=== PATIENT | male | born 1975 | race Caucasian/White ===

== ENCOUNTER 2024-11-08 08:51 | Emergency (ER) | payer BC, SELFPAY ==
[2024-11-08 09:19] VITALS: BP 143/97; PULSE 82; RESP 18; TEMP 36.8; O2SAT 95; BMI 38.2
--- NOTE | 2024-11-08 09:38 | PD.EDRME ---
Rapid Medical Screening Exam RME Arrival date/time: 11/08/24 08:51 Chief Complaint: Nausea/Vomiting/Diarrhea Vital signs: Vital Signs Temperature 98.3 F 11/08/24 09:19 Pulse Rate 82 11/08/24 09:19 Respiratory Rate 18 11/08/24 09:19 Blood Pressure 143/97 H 11/08/24 09:19 Pulse Oximetry (%) 95 11/08/24 09:19 Oxygen Delivery Method Room Air 11/08/24 09:19 Pulse ox room air 95% Vital signs reviewed by provider: Yes COUNTS INCLUDE 234 BEDS AT THE [facility] Narrative: Patient tells me he has had diarrhea that began 3 weeks ago. Tells me that his symptoms were started in the upper abdomen and within the last 2-week has now descended to the lower portion of his abdomen. Patient tried [id number] Imodium and Pepto-Bismol which seemed to help. Patient also complains of mucus described as thick in his stool. Does not see blood.
[2024-11-08 09:56] LABS: Basophils # (Auto) 0.0 Thou/mm3 (0.0-0.2); Basophils % (Auto) 0 % (0-2.5); Eosinophils # (Auto) 0.3 Thou/mm3 (0.0-0.5); Eosinophils % (Auto) 4 % (0-10); Hematocrit 46.8 % (41.0-53.0); Hemoglobin 15.5 g/dL (13.5-16.0); Immature Granulocytes Auto 0.03 Thou/mm3 (0.00-0.00); Lymphocytes # (Auto) 1.7 Thou/mm3 (1.0-4.8); Lymphocytes % (Auto) 24 % (10-50); Mean Corpuscular HGB Conc 33.1 g/dl (31.0-37.0); Mean Corpuscular Hemoglobin 28.5 pg (25.0-35.0); Mean Corpuscular Volume 86 fL (80-100); Monocytes # (Auto) 0.8 Thou/mm3 (0.0-0.8); Monocytes % (Auto) 11 % (0-12); Neutrophils # (Auto) 4.1 Thou/mm3 (1.8-7.7); Neutrophils % (Auto) 60 % (37-80); Nucleated Red Blood Cell # 0.00 Thou/mm3 (0.00-0.00); Nucleated Red Blood Cell % 0 /100 WBC (0); Platelet Count 257 Thou/mm3 (140-440); RDW Standard Deviation 42.5 fL (35.1-43.9); Red Blood Count 5.43 Miln/mm3 (4.50-5.90); White Blood Count 6.8 Thou/mm3 (3.8-10.6)
[2024-11-08 10:14] LABS: Alanine Aminotransferase 28 U/L (10-49); Albumin, Serum 4.5 gm/dL (3.5-5.0); Albumin/Globulin Ratio 2.0 (1.2-2.2); Alkaline Phosphatase 84 U/L (46-116); Anion Gap 9 (7-16); Aspartate Amino Transferase 20 U/L (0-34); BUN/Creatinine Ratio 16 Ratio (12-20); Bilirubin,Total 0.5 mg/dL (0.3-1.2); Blood Urea Nitrogen 16 mg/dL (9-23); Calcium 9.4 mg/dL (8.3-10.6); Calcium (Corrected) 9.4 mg/dL (8.5-10.1); Carbon Dioxide 26.1 mMol/L (20.0-31.0); Chloride 108 mMol/L (98-107); Creatinine (Component) 1.0 mg/dL (0.6-1.3); Estimated Creatinine Clearance 108.5 mL/min (>60); Globulin 2.2 gm/dL (2.3-3.5); Glucose 116 mg/dL (74-106); Lipase 40 U/L (12-53); Osmolality,Calculated 287 (275-295); Potassium 4.4 mMol/L (3.4-5.1); Sodium 143 mMol/L (136-145); Total Protein 6.7 gm/dL (5.7-8.2); eGFR > 60 See Note
[2024-11-08 11:12] VITALS: BP 149/100; PULSE 81; RESP 18; TEMP 36.8; O2SAT 96
--- NOTE | 2024-11-08 11:33 | XR_ITS ---
Examination: CT abdomen with intravenous contrast CT pelvis with intravenous contrast 2-D coronal reconstructions 2-D sagittal reconstructions Date and time of exam:November 08, 2024 1420 hours INDICATIONS: Diarrhea beginning 2 weeks ago. CTDI: vol (mGy) 14.6 DLP: (mGycm) 1008 Technique: Multiple axial sections of the abdomen and pelvis have been obtained. 64 slice high-resolution scanner used. 3 mm axial sections have been obtained, post intravenous injection 60 cc [id number] 2-D sagittal, coronal reconstructions obtained. Low dose protocols were performed. One or more of the following dose reduction techniques were used; automated exposure control, adjustment of the mA and/or KV according to patient size, use of iterative reconstruction technique. Findings: No focal liver or splenic lesions No gallstones No pancreatic or adrenal mass. No renal or ureteral calculi, no hydronephrosis Aorta normal size Tiny fat-containing umbilical hernia. No pericecal inflammatory change No bowel obstruction No diverticulitis Negative for significant prostatomegaly Bladder intact Moderate osteopenia IMPRESSION: No renal or ureteral calculi, no hydronephrosis No CT findings of appendicitis, obstruction, diverticulitis or nonspecific colitis pattern
--- NOTE | 2024-11-08 11:34 | PD.EDNV ---
Nausea/Vomit./Diarrhea-RME/HPI General Chief complaint: Nausea/Vomiting/Diarrhea Stated complaint: Diarrhea X 3 weeks Time Seen by Provider: 11/08/24 11:26 Source: patient Arrival date/time: 11/08/24 08:51 Limitations: no limitations RME / HPI RME / HPI Narrative: 49-year-old male with a history of antibiotic use is here today with 3-week history of loose stools. Denies any blood with this. He has diffuse abdominal pain. Denies any nausea, vomiting, or fevers. Has no urinary complaints. He has a history of multiple sclerosis and no other chronic disease. He states he contact his primary care provider for follow-up as they were not available so he came here. He has no other acute complaints or concerns. Related Data Home Medications ?Medication ?Instructions ?Recorded ?Confirmed alprazolam 0.5 mg tablet (Xanax) 0.5 mg PO HS #0 tabs 06/03/16 02/22/23 duloxetine 30 mg capsule,delayed 30 mg PO 1XD 02/22/23 02/23/23 release gabapentin 100 mg capsule 100 mg PO TID 02/22/23 02/23/23 metoprolol tartrate 25 mg tablet 25 mg PO BID 02/22/23 02/23/23 tizanidine 4 mg tablet 4 mg PO TID 02/22/23 02/23/23 pantoprazole 40 mg tablet,delayed 40 mg PO QDAY 02/23/23 02/23/23 release prednisone 20 mg tablet 20 mg PO 1XD 02/23/23 02/23/23 Allergies Allergy/AdvReac Type Severity Reaction Status Date / Time dimethyl fumarate (From Allergy Severe Anaphylaxis Verified 11/08/24 08:55 Tecfidera) glatiramer (copolymer 1) Allergy Mild SOB,RASH,HR Verified 11/08/24 08:55 RAPID Review of Systems Review of Systems Systems Reviewed: All systems reviewed, normal except as documented ED Exam General Limitations: Present no limitations General appearance: Present alert and in no apparent distress Head Head exam: Present atraumatic Eye Eye exam: Present normal appearance, PERRL and EOMI ENT ENT exam: Present normal exam, normal oropharynx and mucous membranes moist Neck Neck exam: Present normal inspection, full ROM and trachea midline Chest Chest inspection: Present normal inspection and symmetric chest wall rise Respiratory Respiratory exam: Present normal lung sounds bilaterally Cardiovascular Cardiovascular exam: Present regular rate, normal rhythm and normal heart sounds Abdominal Exam Abdominal exam: Present soft; Absent distention, tenderness or guarding Extremities Exam Extremities exam: Present normal inspection and full ROM Back Exam Back exam: Present normal inspection and full ROM Neurological Exam Neurological exam: Present alert, oriented X3 and CN II-XII intact Psychiatric Psychiatric exam: Present normal affect and normal mood Skin Skin exam: Present warm, dry, intact and normal color Course Quality Measures none Orders Category Date Time Status CT Screening NOW Care 11/08/24 11:[address] abdomen pelvis w con Stat Exams 11/08/24 11:33 Completed CBC Stat Lab 11/08/24 09:49 Completed Clostridium Difficile PCR Stat Lab 11/08/24 Ordered Comprehensive Metabolic Panel Stat Lab 11/08/24 09:49 Completed Lipase Stat Lab 11/08/24 09:49 Completed Ova & Parasites, Conc, Smear* Stat Lab 11/08/24 11:33 Ordered Stool Culture Stat Lab 11/08/24 11:33 Ordered Urinalysis Stat Lab 11/08/24 09:41 Completed Vital Signs Vital signs: Vital Signs Temperature 98.3 F 11/08/24 09:19 Pulse Rate 82 11/08/24 09:19 Respiratory Rate 18 11/08/24 09:19 Blood Pressure 143/97 H 11/08/24 09:19 Pulse Oximetry (%) 95 11/08/24 09:19 Oxygen Delivery Method Room Air 11/08/24 09:19 Nausea/Vomiting/Diarrhea MDM Narrative MDM Narrative:: 49-year-old male with a history of antibiotic use is here today with 3-week history of loose stools. Denies any blood with this. He has diffuse abdominal pain. Denies any nausea, vomiting, or fevers. Has no urinary complaints. He has a history of multiple sclerosis and no other chronic disease. He states he contact his primary care provider for follow-up as they were not available so he came here. He has no other acute complaints or concerns. On exam, patient is nontoxic-appearing and in no visible signs distress. Vital signs are stable. His work appears essentially unremarkable including CT abdomen pelvis. CT revealed no diverticulitis or colitis pattern. Stool studies were requested. This may provide further info on the etiology of the patient's symptoms. He is asked to follow-up with his primary care provider or gastroenterology. Return here at anytime for any worsening or emergent changes. Patient data External records reviewed:: None Clinical information provided by:: patient Social determinants that could affect healthcare access:: none Patient has the following chronic illnesses:: Hypertension, anxiety How is presenting disease/condition affected by chronic disease/condition?: uneffected by Evaluation data The following diagnostics were reviewed and interpreted by me:: lab results (No leukocytosis or significant anemia. No metabolic derangement.) and radiology exam(s) (No colitis pattern, no small bowel obstruction) Lab and/or radiology exams considered but not ordered:: n/a Interpretation Summary: n/a Medications / Prescriptions Medications / Prescriptions considered but not ordered:: n/a Medication administrations:: n/a Consultations Consultation(s) initiated? (list below): No Diagnosis Nausea Differential Diagnosis: gastroenteritis, clostridium difficile infection and dehydration Most likely diagnosis given after review of the tests above:: Diarrhea of unknown etiology Admission Indicated Admission indicated?: not indicated Admission Request Was there a request for admission?: No Disposition Plan Disposition Plan: Discharge Discharge Attestation Discharge Attestation: The patient and all family members were given an opportunity to ask questions and understood the discharge instructions. Discharge instructions specifically effects, indications for sooner follow up or return to the emergency department, and the expected course of current diagnosis. Patient condition: Stable Discharge Plan Plan Patient Disposition: HOME (Self Care) Patient condition on transfer: Stable Prescriptions/Referrals Prescriptions/Med Rec: No Action alprazolam [Xanax] 0.5 MG tablet 0.5 mg PO HS Qty: 0 gabapentin 100 mg capsule 100 mg PO TID Patient Comments: take 2 capsules by mouth three times a day metoprolol tartrate 25 mg tablet 25 mg PO BID Patient Comments: take 1 tablet by mouth twice a day with food tizanidine 4 mg Tablet 4 mg PO TID duloxetine 30 mg capsule,delayed release(DR/EC) 30 mg PO 1XD Patient Comments: take 1 capsule by mouth once daily pantoprazole 40 mg Tablet,Delayed Release (Dr/Ec) 40 mg PO QDAY prednisone 20 mg tablet 20 mg PO 1XD Patient Comments: take 3 tablets by mouth every morning for 2 days then 2 tablets b... (REFER TO PRESCRIPTION NOTES). Referrals: Adair Ann MD [Physician] - In 1 week Loretta Giraldo PA-C [Primary Care Provider] - In 1 week Problem List Clinical Impression: Diarrhea Patient/Caregiver Discharge Instructions Education Materials: ED Diarrhea, Unknown Cause Additional Instructions: - Obtain the stool studies and provide them to the laboratory. - Contact your primary doctor to schedule close follow-up. - The source of your diarrhea needs to be identified so appropriate treatment can be provided. - You may also contact your [employer] to schedule follow-up appointment. - Return to the emergency room at anytime for any worsening or emergent changes. Print Language: Ghanaian Stand Alone Forms: [employer] Award Info., Patient Portal Info Letter
[2024-11-08 11:58] LABS: Bacteria,Urine 3+; Bilirubin,Urine Negative (Negative); Blood,Urine Negative (Negative); Collection Type, Urine Clean Catch; Color,Urine Yellow (Lt Yel-Yel); Glucose, Urine Negative (Negative); Hyaline Casts,Urine < 1 /hpf (0-1); Ketones,Urine Negative (Negative); Leukocyte Esterase,Urine Positive (Negative); Nitrite,Urine Positive (Negative); PH,Urine 5.5 (5.0-7.0); Protein,Urine 1+ (Neg - Trace); RBC,Urine 3 /hpf (0-3); Specific Gravity,Urine 1.026 (1.001-1.035); Squamous Epithelial Cell,Urine 1 /hpf (0-5); Urobilinogen,Urine Negative mg/dL (0.0-1.0); WBC,Urine 33 /hpf (0-5)
[2024-11-08 12:06] LABS: Clarity,Urine Hazy (Clear/Hazy)
[2024-11-08 13:55] VITALS: BP 145/96; PULSE 66; RESP 16; TEMP 36.6; O2SAT 99
[2024-11-08 17:04] VITALS: BP 137/98; PULSE 69; RESP 18; TEMP 36.6; O2SAT 98
== END 2024-11-08 17:22 | disposition home or self-care (01) ==
PROVIDERS: Physician Assistant; Emergency Provider Emergency Medicine; PCP Physician Assistant
DX: R19.7 Diarrhea, unspecified (principal); R10.84 Generalized abdominal pain; G35 Multiple sclerosis
CPT/HCPCS: 36415; 74177; 80053; 81001; 83690; 85025; 87015; 87045; 87046; 87177; 87209; 87493; 87899; 99284; A4649; Q9967

== ENCOUNTER → 2024-11-16 | Outpatient (CLI) | payer BC, SELFPAY ==
[2024-11-16 09:33] LABS: Collection Type, Urine Clean Catch
[2024-11-16 10:06] LABS: Basophils # (Auto) 0.0 Thou/mm3 (0.0-0.2); Basophils % (Auto) 1 % (0-2.5); Eosinophils # (Auto) 0.3 Thou/mm3 (0.0-0.5); Eosinophils % (Auto) 3 % (0-10); Hematocrit 46.2 % (41.0-53.0); Hemoglobin 15.2 g/dL (13.5-16.0); Immature Granulocytes Auto 0.06 Thou/mm3 (0.00-0.00); Lymphocytes # (Auto) 1.5 Thou/mm3 (1.0-4.8); Lymphocytes % (Auto) 17 % (10-50); Mean Corpuscular HGB Conc 32.9 g/dl (31.0-37.0); Mean Corpuscular Hemoglobin 28.1 pg (25.0-35.0); Mean Corpuscular Volume 86 fL (80-100); Monocytes # (Auto) 0.8 Thou/mm3 (0.0-0.8); Monocytes % (Auto) 9 % (0-12); Neutrophils # (Auto) 6.0 Thou/mm3 (1.8-7.7); Neutrophils % (Auto) 69 % (37-80); Nucleated Red Blood Cell # 0.00 Thou/mm3 (0.00-0.00); Nucleated Red Blood Cell % 0 /100 WBC (0); Platelet Count 261 Thou/mm3 (140-440); RDW Standard Deviation 42.9 fL (35.1-43.9); Red Blood Count 5.40 Miln/mm3 (4.50-5.90); White Blood Count 8.6 Thou/mm3 (3.8-10.6)
[2024-11-16 10:15] LABS: Bilirubin,Urine Negative (Negative); Blood,Urine Negative (Negative); Clarity,Urine Clear (Clear/Hazy); Color,Urine Lt-Yellow (Lt Yel-Yel); Culture Indicated,Urine Not Indicated; Glucose, Urine Negative (Negative); Ketones,Urine Negative (Negative); Leukocyte Esterase,Urine Negative (Negative); Nitrite,Urine Negative (Negative); PH,Urine 6.5 (5.0-7.0); Protein,Urine Negative (Neg - Trace); RBC,Urine 1 /hpf (0-3); Specific Gravity,Urine 1.021 (1.001-1.035); Squamous Epithelial Cell,Urine < 1 /hpf (0-5); Urobilinogen,Urine Negative mg/dL (0.0-1.0); WBC,Urine 6 /hpf (0-5)
[2024-11-16 10:17] LABS: Glucose Estimated Average 123 mg/dL (80-131); Hemoglobin A1C 5.9 % Hgb (4.8-6.0)
[2024-11-16 10:25] LABS: Alanine Aminotransferase 28 U/L (10-49); Albumin, Serum 4.5 gm/dL (3.5-5.0); Albumin/Globulin Ratio 1.9 (1.2-2.2); Alkaline Phosphatase 87 U/L (46-116); Anion Gap 9 (7-16); Aspartate Amino Transferase 23 U/L (0-34); BUN/Creatinine Ratio 13 Ratio (12-20); Bilirubin,Total 0.4 mg/dL (0.3-1.2); Blood Urea Nitrogen 13 mg/dL (9-23); Calcium 9.3 mg/dL (8.3-10.6); Calcium (Corrected) 9.3 mg/dL (8.5-10.1); Carbon Dioxide 26.9 mMol/L (20.0-31.0); Cardiac Risk Estimate 4.8 RATIO (4.0-6.7); Chloride 107 mMol/L (98-107); Cholesterol 251 mg/dL (132-200); Creatinine (Component) 1.0 mg/dL (0.6-1.3); Globulin 2.4 gm/dL (2.3-3.5); Glucose 107 mg/dL (74-106); HDL Cholesterol 52 mg/dL (40-60); LDL Cholesterol,Calculated 182 mg/dL (0-130); Osmolality,Calculated 285 (275-295); Potassium 4.6 mMol/L (3.4-5.1); Sodium 143 mMol/L (136-145); Thyroid Stimulating Hormone 2.20 uIU/mL (0.55-4.78); Total Protein 6.9 gm/dL (5.7-8.2); Triglycerides 87 mg/dL (30-150); eGFR > 60 See Note
[2024-11-16 10:30] LABS: Prostate Specific Antigen 2.90 ng/mL (0-4.00)
[2024-11-16 10:35] LABS: Vitamin B12 604 pg/mL (211-911); Vitamin D 25 Hydroxy Total 38.1 ng/mL (7.3-40.2)
== END | disposition home or self-care (01) ==
LOC: COPL 08:08
PROVIDERS: PCP Family Medicine; Referring Provider Physician Assistant; Visit Provider Physician Assistant
DX: I10 Essential (primary) hypertension (principal); E78.5 Hyperlipidemia, unspecified; R73.01 Impaired fasting glucose; E55.9 Vitamin D deficiency, unspecified; Z12.5 Encounter for screening for malignant neoplasm of prostate; R19.7 Diarrhea, unspecified
CPT/HCPCS: 36415; 80053; 80061; 81001; 82306; 82607; 83036; 84153; 84443; 85025

== ENCOUNTER → 2024-11-30 | Outpatient (CLI) | payer BC, SELFPAY ==
[2024-11-30 16:53] LABS: Campylobacter PCR Negative (Negative); Salmonella Species PCR Negative (Negative); Shiga Toxin PCR Negative (Negative); Shigella Species PCR Negative (Negative)
[2024-12-03 17:49] LABS: Source STOOL
[2024-12-03 23:36] LABS: Source STOOL
[2024-12-03 23:36] LABS: Source STOOL
== END | disposition home or self-care (01) ==
LOC: SLDO 10:17
PROVIDERS: PCP Physician Assistant; Referring Provider Physician Assistant; Visit Provider Physician Assistant
DX: R19.7 Diarrhea, unspecified (principal)
CPT/HCPCS: 87015; 87045; 87046; 87177; 87205; 87209; 87899

== ENCOUNTER → 2024-12-03 | Outpatient (CLI) | payer BC, SELFPAY ==
[2024-12-06 14:45] LABS: Fecal Globin Result DETECTED (NOT DETECTED)
== END | disposition home or self-care (01) ==
LOC: SLDO 09:33
PROVIDERS: PCP Physician Assistant; Referring Provider Physician Assistant; Visit Provider Physician Assistant
DX: Z12.11 Encounter for screening for malignant neoplasm of colon (principal)
CPT/HCPCS: 82274; 87493; G0328

== ENCOUNTER → 2025-01-19 | Outpatient (CLI) | payer OTHER, SELFPAY ==
[2025-01-19 09:44] VITALS: PULSE 66
[2025-01-19] MEDS: ALBUTEROL RT 2.5 MG/3 ML NEBU INH (09:44)
[2025-01-19 09:47] VITALS: PULSE 66; RESP 18; O2SAT 94
[2025-01-19 09:48] VITALS: PULSE 70; RESP 18; O2SAT 97
== END | disposition home or self-care (01) ==
PROVIDERS: PCP Physician Assistant; Referring Provider Family Medicine; Visit Provider Family Medicine
DX: I26.99 Other pulmonary embolism without acute cor pulmonale (principal)
CPT/HCPCS: 94060; 94640; 94726; 94729

== ENCOUNTER → 2025-02-28 | Outpatient (CLI) | payer BC, SELFPAY ==
[2025-02-28 08:48] LABS: Glucose Estimated Average 126 mg/dL (80-131); Hemoglobin A1C 6.0 % Hgb (4.8-6.0)
[2025-02-28 08:54] LABS: Alanine Aminotransferase 28 U/L (10-49); Albumin, Serum 4.6 gm/dL (3.5-5.0); Albumin/Globulin Ratio 2.6 (1.2-2.2); Alkaline Phosphatase 79 U/L (46-116); Anion Gap 9 (7-16); Aspartate Amino Transferase 23 U/L (0-34); BUN/Creatinine Ratio 16 Ratio (12-20); Bilirubin,Total 0.4 mg/dL (0.3-1.2); Blood Urea Nitrogen 14 mg/dL (9-23); Calcium 9.6 mg/dL (8.3-10.6); Calcium (Corrected) 9.6 mg/dL (8.5-10.1); Carbon Dioxide 27.8 mMol/L (20.0-31.0); Cardiac Risk Estimate 3.8 RATIO (4.0-6.7); Chloride 107 mMol/L (98-107); Cholesterol 192 mg/dL (132-200); Creatinine (Component) 0.9 mg/dL (0.6-1.3); Globulin 1.8 gm/dL (2.3-3.5); Glucose 115 mg/dL (74-106); HDL Cholesterol 51 mg/dL (40-60); LDL Cholesterol,Calculated 127 mg/dL (0-130); Osmolality,Calculated 288 (275-295); Potassium 4.8 mMol/L (3.4-5.1); Sodium 144 mMol/L (136-145); Total Protein 6.4 gm/dL (5.7-8.2); Triglycerides 70 mg/dL (30-150); eGFR > 60 See Note
== END | disposition home or self-care (01) ==
PROVIDERS: PCP Physician Assistant; Referring Provider Physician Assistant; Visit Provider Physician Assistant
DX: I10 Essential (primary) hypertension (principal); E78.5 Hyperlipidemia, unspecified; R73.01 Impaired fasting glucose
CPT/HCPCS: 36415; 80053; 80061; 83036